=== PATIENT | male | born 1930 | race Caucasian/White ===

== ENCOUNTER → 2017-09-20 | Outpatient (CLI) | payer OTHER ==
[~2017-09-20] MED LIST: ADVAIR 100-501 EACH INH; ADVAIR 250-501 EACH INH; ASPIRIN325; ATENOLOL 50MG T50 M1 PO; AVODART0.5 MG PO; CIPRO250 M1 PO; CLARITIN-D 12 H1 TA1; FISH OIL 1,0001 EAC5 PO; FLOMAX PO; HYDROCHLOROTHIA25 M1 PO; LASIX 40 MG TAB40 MG PO; METAMUCIL197.2 GM PO; MIRALAX255 GM PO; MULTIVITAMINS1 EAC7; PRILOSEC 20 MG20 MG; ZOCOR40 MG
== END ==
LOC: M.RAD 13:36
DX: J44.1 Chronic obstructive pulmonary disease with (acute) exacerbation (principal); I10 Essential (primary) hypertension; E78.00 Pure hypercholesterolemia, unspecified; E66.9 Obesity, unspecified; Z98.61 Coronary angioplasty status; Z95.1 Presence of aortocoronary bypass graft; Z87.891 Personal history of nicotine dependence; Z85.46 Personal history of malignant neoplasm of prostate

== ENCOUNTER → 2017-11-11 | Outpatient (CLI) | payer OTHER | LOC: M.RAD 16:03 | DX: J98.4 Other disorders of lung (principal); I10 Essential (primary) hypertension; C61 Malignant neoplasm of prostate; Z87.891 Personal history of nicotine dependence; Z79.899 Other long term (current) drug therapy ==

== ENCOUNTER → 2017-11-18 | Outpatient (CLI) | payer OTHER | LOC: M.CT 13:40 | DX: J44.1 Chronic obstructive pulmonary disease with (acute) exacerbation (principal); K44.9 Diaphragmatic hernia without obstruction or gangrene; I51.7 Cardiomegaly; J98.4 Other disorders of lung; Z85.46 Personal history of malignant neoplasm of prostate ==